=== PATIENT | male | born 1950 | race Caucasian/White ===

== ENCOUNTER → 2017-07-14 | Outpatient (CLI) | payer MEDICARE, MEDICAID | END | disposition home or self-care (01) | LOC: RAD 14:41 | PROVIDERS: ATTEND Internal Medicine Clinical Cardiac Electrophysiology | DX: Z01.818 Encounter for other preprocedural examination (principal); Z95.810 Presence of automatic (implantable) cardiac defibrillator | CPT/HCPCS: 71010 ==